=== PATIENT | female | born 1935 | race Caucasian/White ===

== ENCOUNTER 2016-10-04 09:44 | Emergency (ER) | payer MEDICARE, OTHER ==
[2016-10-04 09:45] VITALS: BMI 25.8
--- NOTE | 2016-10-04 11:16 | C.PDOC ---
History Of Present Illness 81 yr old female presents to the ER with complaints of generalized facial pain since last night. Patient states the pain comes and goes, more over upper gums, aching, " feels like my face is swollen". Patient denies recent illness, fever, chills, recent dental work, severe headache, dizziness, vertigo, visual changes , focal deficits, visual changes, drooling, trismus, neck pain, chest pain, SOB , dyspnea, palpitation, abd. pain, back pain. Ambulate to ED for evaluation, not in any apparent distress. Time Seen by Provider: 10/04/16 10:32 Chief Complaint (Nursing): Dental Pain History Per: Patient History/Exam Limitations: no limitations Onset/Duration Of Symptoms: Sudden Onset (Facial tenderness since last night) Current Symptoms Are (Timing): Still Present Quality: Positive for: Aching Past Medical History Reviewed: Historical Data, Nursing Documentation, Vital Signs Vital Signs: Last Vital Signs Temp 97.6 F 10/04/16 09:51 Pulse 64 10/04/16 09:51 Resp 16 10/04/16 09:51 BP 145/77 10/04/16 09:51 Pulse Ox 97 10/04/16 11:17 Family History: States: No Known Family Hx - Social History Hx Alcohol Use: No Hx Substance Use: No Review Of Systems Except As Marked, All Systems Reviewed And Found Negative. Constitutional: Positive for: Other ((+) Facial tenderness). Negative for: Fever, Chills Cardiovascular: Negative for: Chest Pain Respiratory: Negative for: Shortness of Breath Musculoskeletal: Negative for: Neck Pain Neurological: Negative for: Weakness, Numbness Physical Exam - Physical Exam Appears: Well, Non-toxic, No Acute Distress Skin: Normal Color, Warm, Dry, No Rash Head: Atraumatic, Normacephalic Eye(s): bilateral: Normal Inspection, PERRL, EOMI Ear(s): Bilateral: Normal Nose: Normal, No Discharge Oral Mucosa: Moist, No Drooling, No Trismus Teeth: Tender To Palpation (mild to Left upper lateral incisor.), Other (Uper teeth crowns.) Gingiva: Erythema (mild erythema and edema upper frontal.), No Ulceration, No Bleeding, No Abscess Throat: Normal, No Erythema, No Exudate Neck: Normal, Normal ROM, Supple Lymphatic: Adenopathy (mild B/L submandibular) Chest: Symmetrical, No Tenderness Cardiovascular: Rhythm Regular, No Murmur Respiratory: Normal Breath Sounds, No Rales, No Rhonchi, No Stridor, No Wheezing Extremity: Normal ROM, No Swelling Neurological/Psych: Oriented x3, Normal Speech Gait: Steady ED Course And Treatment O2 Sat by Pulse Oximetry: 97 Pulse Ox Interpretation: Normal Progress Note: Pt was evaluated by ED attending and Rx: Amoxicillin and discharge with outpt f/u PMD, Dentist recommend. On re-eavluation, p[t is afebrile, hemodyhamicaly stable. Non-toxic. [place] Po well in ED. Neck: (-) meningeal sign. Neurologicaly intact. Pt advised and ref. to F/U with Dentist and PMD in 2-3 days for re-eavl. return ifa ny new changes. Disposition Counseled Patient/Family Regarding: Diagnosis, Need For Followup, Rx Given - Disposition Referrals: Jessica Alonso MD [Medical Doctor] - Disposition: HOME/ ROUTINE Disposition Time: 11:10 Condition: STABLE Additional Instructions: Take medication as prescribed Warm salty water teeth soaks Follow up with PMD and Dentist in 2-3 days for re-evaluation. Return to ED if any worsening or new changes. Prescriptions: Amoxicillin [Amoxil 500 mg Cap] 500 mg PO BID #14 cap Chlorhexidine Gluconate [Peridex 473 ml] 5 ml PO TID #1 bottle traMADol [Ultram] 50 mg PO BID #7 tab Instructions: Toothache (ED) Print Language: JAPANESE - Clinical Impression Clinical Impression: Gingivitis - PA / RECYCLING OR RUBBISH COLLECTOR / Resident Statement MD/DO has reviewed & agrees with the documentation as recorded. - Scribe Statement The provider has reviewed the documentation as recorded by the Scribe Lucy Mckeon All medical record entries made by the Scribe were at my direction and personally dictated by me. I have reviewed the chart and agree that the record accurately reflects my personal performance of the history, physical exam, medical decision making, and the department course for this patient. I have also personally directed, reviewed, and agree with the discharge instructions and disposition.
[2016-10-04 12:09] VITALS: BP 155/93; PULSE 63; RESP 18; TEMP 98.1; O2SAT 98
== END 2016-10-04 12:10 | disposition home or self-care (01) ==
LOC: C.ER 09:44
DX: K05.10 Chronic gingivitis, plaque induced (principal)

== ENCOUNTER 2016-10-05 09:34 | Emergency (ER) | payer MEDICARE, OTHER ==
[2016-10-05 09:34] VITALS: BMI 25.8
[2016-10-05] MEDS ORDERED: Sodium Chloride 0.9% 1,000 ML IV ONE (11:48)
[2016-10-05 12:00] LABS: BASO % 0.5 % (0.0-2.0); EOS % 0.1 % (0.0-4.0); HEMATOCRIT 36.1 % (34.0-47.0); LYMPH # 1.2 K/uL (1.0-4.3); LYMPH % 12.4 % (20.0-40.0); MEAN CELL VOLUME 84.6 fL (81.0-99.0); MEAN CORPUSCULAR HEMOGLOBIN 27.3 pg (27.0-31.0); MEAN CORPUSCULAR HGB CONC 32.3 g/dL (33.0-37.0); MEAN PLATELET VOLUME 10.1 fL (7.2-11.7); MONO # 0.4 K/uL (0.0-0.8); MONO % 3.7 % (0.0-10.0); RED CELL DISTRIBUTION WIDTH 14.6 % (11.5-14.5); WHITE BLOOD COUNT 9.4 K/uL (4.8-10.8)
[2016-10-05] MEDS ORDERED: Sodium Chloride 0.9% 1,000 ML ONE (12:00)
[2016-10-05 12:25] LABS: CHLORIDE 102 mmol/L (98-107); POTASSIUM 3.7 mmol/L (3.6-5.2); SODIUM 142 mmol/L (132-148)
[2016-10-05 12:26] LABS: RBC URINE 7 /hpf (0-3); URINE BACTERIA FEW (<OCC); URINE BILIRUBIN NEGATIVE (NEGATIVE); URINE BLOOD NEGATIVE (NEGATIVE); URINE COLOR Yellow (YELLOW); URINE GLUCOSE (UA) NORMAL (Normal); URINE KETONE 1+ mg/dL (NEGATIVE); URINE LEUKOCYTE ESTERASE 1+ Leu/uL (Negative); URINE PROTEIN NEGATIVE (NEGATIVE); URINE UROBILINOGEN NORMAL mg/dL (0.2-1.0); WBC URINE 47 /hpf (0-5)
[2016-10-05 12:27] LABS: BILIRUBIN,TOTAL 0.6 mg/dL (0.2-1.3); GFR AFRICAN-AMERICAN > 60
[2016-10-05 12:28] LABS: ALKALINE PHOSPHATASE 72 U/L (38-126); ALT/SGPT 20 U/L (9-52); AST/SGOT 24 U/L (14-36); BLOOD UREA NITROGEN 15 mg/dL (7-17); CARBON DIOXIDE 26 mmol/L (22-30); GLUCOSE,RANDOM 135 mg/dL (65-105); TOTAL PROTEIN 7.3 g/dL (6.3-8.3)
[2016-10-05 12:29] LABS: CALCIUM 8.9 mg/dl (8.6-10.4)
--- NOTE | 2016-10-05 12:33 | CT ---
PROCEDURE: CT HEAD WITHOUT CONTRAST. HISTORY: "dizzness" COMPARISON: 10/07/2015 TECHNIQUE: Axial computed tomography images were obtained through the head/brain without intravenous contrast. Radiation dose: Total exam DLP = 1036.04 mGy-cm. FINDINGS: HEMORRHAGE: No intracranial hemorrhage. BRAIN: No intracranial mass. 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 Small old left basal ganglia lacunar infarct. No evidence of acute infarct. Mild diffuse atrophy consistent with patient age. Mild chronic periventricular white matter ischemic change. VENTRICLES: Unremarkable. No hydrocephalus. CALVARIUM: Unremarkable. PARANASAL SINUSES: Unremarkable as visualized. No significant inflammatory changes. MASTOID AIR CELLS: Unremarkable as visualized. No inflammatory changes. OTHER FINDINGS: None. IMPRESSION: No intracranial mass, hemorrhage or evidence of acute infarct. 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 Involutional changes consistent with age.
--- NOTE | 2016-10-05 12:59 | C.PDOC ---
History Of Present Illness 81 year old female presents to the ED with complaints of waking up with dizziness and having 2 episodes of vomiting this morning. Patient states she was seen in the ED yesterday for dental pain and was started on Amoxicillin and Tramadol. She took the Amoxicillin last night and notes she still feels lightheaded and dizzy. She has not taken anything for the symptoms and denies chest pain, abdominal pain, fever, chills, urinary symptoms, or any other complaints at this time. Time Seen by Provider: 10/05/16 11:36 Chief Complaint (Nursing): GI Problem History Per: Patient History/Exam Limitations: no limitations Onset/Duration Of Symptoms: Hrs Current Symptoms Are (Timing): Still Present Severity: Mild Past Medical History Reviewed: Historical Data, Nursing Documentation, Vital Signs Vital Signs: Last Vital Signs Temp 98 F 10/05/16 16:04 Pulse 77 10/05/16 16:04 Resp 17 10/05/16 16:04 BP 107/52 L 10/05/16 16:04 Pulse Ox 97 10/05/16 16:55 Family History: States: Unknown Family Hx - Social History Hx Alcohol Use: No Hx Substance Use: No Review Of Systems Except As Marked, All Systems Reviewed And Found Negative. Constitutional: Negative for: Fever, Chills Cardiovascular: Positive for: Light Headedness. Negative for: Chest Pain Respiratory: Negative for: Shortness of Breath Gastrointestinal: Positive for: Vomiting. Negative for: Abdominal Pain Genitourinary: Negative for: Dysuria, Frequency Neurological: Positive for: Dizziness. Negative for: Weakness, Numbness Physical Exam - Physical Exam Appears: Non-toxic, No Acute Distress Skin: Normal Color, Warm, Dry Head: Atraumatic, Normacephalic Eye(s): bilateral: Normal Inspection Oral Mucosa: Moist Chest: Symmetrical, No Deformity Cardiovascular: Rhythm Regular, No Murmur Respiratory: Normal Breath Sounds, No Accessory Muscle Use, No Rales, No Rhonchi , No Wheezing Gastrointestinal/Abdominal: Soft, No Tenderness, No Distention, No Guarding, No Rebound Extremity: Normal ROM Neurological/Psych: Oriented x3, Normal Speech, Normal Cognition ED Course And Treatment - Laboratory Results Result Diagrams: 10/05/16 11:55 10/05/16 11:55 ECG: Interpreted By Me, Viewed By Me ECG Rhythm: Sinus Rhythm Rate From EC O2 Sat by Pulse Oximetry: 97 (Room air) Pulse Ox Interpretation: Normal - CT Scan/US CT Head w/o contrast Other Rad Studies (CT/US): Read By Radiologist, Radiology Report Reviewed CT/US Interpretation: IMPRESSION: No intracranial mass, hemorrhage or evidence of acute infarct. 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 Involutional changes consistent with age. Progress Note: CT Head w/o contrast, EKG, Blood work, and Urinalysis ordered and reviewed. Patient treated with Pepcid, Zofran, and IV fluids. Medical Decision Making Medical Decision Making: Pt feeling better post meds Labs and CT unremrkable No indication of central cause Plan dc home pcp follow up 1 -2 days Disposition Counseled Patient/Family Regarding: Diagnosis, Need For Followup - Disposition Referrals: [facility] at [facility] [Outside] Disposition: HOME/ ROUTINE Disposition Time: 16:45 Condition: GOOD Additional Instructions: STOP ANTIBIOTIC YOU GOT LAST NIGHT Start new one tonight Follow up with pmd or our clinic Return to the ED for any new or worsening symptoms Prescriptions: Nitrofurantoin Macrocrystals [Macrobid] 1 cap PO BID #14 cap Ondansetron [Zofran Odt] 1 odt PO BID PRN #6 odt PRN Reason: .nausea vomiting Instructions: Vertigo (ED), Urinary Tract Infection in Women (ED) - Clinical Impression Clinical Impression: UTI (urinary tract infection), Dizziness - Scribe Statement The provider has reviewed the documentation as recorded by the Scribe Fan Macdonald. Provider Attestation: All medical record entries made by the Scribe were at my direction and personally dictated by me. I have reviewed the chart and agree that the record accurately reflects my personal performance of the history, physical exam, medical decision making, and the department course for this patient. I have also personally directed, reviewed, and agree with the discharge instructions and disposition.
[2016-10-05 16:05] VITALS: BP 107/52; PULSE 77; RESP 17; TEMP 98
[2016-10-05 16:46] VITALS: O2SAT 97
--- NOTE | 2016-10-06 10:50 | CARD ---
APPROVED REPORT EKG Measurement Heart [id number] <Conclusion> Normal sinus rhythm Normal ECG
== END 2016-10-05 17:25 | disposition home or self-care (01) ==
LOC: C.ER 09:34
DX: N39.0 Urinary tract infection, site not specified (principal); R42 Dizziness and giddiness
CPT/HCPCS: 70450; 80053; 81001; 85025; 93005; 96361; 96374; 96375; 99285; J2405; J7040

== ENCOUNTER 2017-08-07 10:58 | Emergency (ER) | payer MEDICARE, OTHER ==
[2017-08-07 11:01] VITALS: BMI 26.3
[2017-08-07 11:42] LABS: BASO % 0.2 % (0.0-2.0); EOS % 0.7 % (0.0-4.0); HEMOGLOBIN 12.4 g/dL (11.0-16.0); LYMPH # 2.2 K/uL (1.0-4.3); LYMPH % 29.7 % (20.0-40.0); MEAN CELL VOLUME 84.1 fL (81.0-99.0); MEAN CORPUSCULAR HEMOGLOBIN 27.7 pg (27.0-31.0); MEAN PLATELET VOLUME 9.5 fL (7.2-11.7); MONO # 0.7 K/uL (0.0-0.8); MONO % 8.9 % (0.0-10.0); NEUT # 4.6 K/uL (1.8-7.0); NEUT % 60.5 % (50.0-75.0); NRBC % 0.1 % (0.0-2.0); RBC 4.46 Mil/uL (3.80-5.20); RED CELL DISTRIBUTION WIDTH 15.1 % (11.5-14.5); WHITE BLOOD COUNT 7.5 K/uL (4.8-10.8)
--- NOTE | 2017-08-07 11:54 | C.PDOC ---
History Of Present Illness 82-YEAR-OLD FEMALE, PRESENTS TO THE EMERGENCY DEPARTMENT WITH COMPLAINTS OF VOMITING/DIARRHEA ONGOING FEW DAYS. LAST VOMITING THIS AM. PATIENT NOTES OCC BELLY CRAMPING. NO FEV OR BLOOD. SECONDARY COMPLAINT IS EXACERBATION OF CHRONIC R KNEE PAIN, ONGOING FOR PAST SEVERAL WEEKS. XR NEGATIVE. HAD RELIEF W MOTRIN, BUT IS NO LONGER WORKING NO PAIN MEDS TAKEN DISC RECORDIST EXAM ABD NEG R KNEE MILD EFFUSION. PAIN REPRODUCIBLE W FLEXION Time Seen by Provider: 08/07/17 11:11 Chief Complaint (Nursing): Abdominal Pain History Per: Patient History/Exam Limitations: no limitations Onset/Duration Of Symptoms: Days Current Symptoms Are (Timing): Still Present Severity: Moderate Past Medical History Vital Signs: Last Vital Signs Temp 98.3 F 08/07/17 11:01 Pulse 80 08/07/17 11:01 Resp 18 08/07/17 11:01 BP 148/77 08/07/17 11:01 Pulse Ox 96 08/07/17 12:06 - Medical History PMH: HTN Family History: States: Unknown Family Hx - Social History Hx Alcohol Use: No Hx Substance Use: No - Immunization History Hx Tetanus Toxoid Vaccination: Yes Hx Influenza Vaccination: Yes Hx Pneumococcal Vaccination: Yes Review Of Systems Except As Marked, All Systems Reviewed And Found Negative. Constitutional: Negative for: Fever, Chills Cardiovascular: Negative for: Chest Pain, Palpitations Respiratory: Negative for: Shortness of Breath Gastrointestinal: Positive for: Vomiting, Abdominal Pain, Diarrhea Musculoskeletal: Positive for: Leg Pain (R KNEE PAIN). Negative for: Back Pain Neurological: Negative for: Weakness, Numbness, Headache, Dizziness Physical Exam - Physical Exam Appears: Non-toxic, No Acute Distress Skin: Warm, Dry, No Rash Head: Atraumatic, Normacephalic Eye(s): bilateral: Normal Inspection, PERRL Oral Mucosa: Moist Lips: Normal Appearing Neck: Normal ROM Chest: Symmetrical Cardiovascular: Rhythm Regular, No Murmur Respiratory: Normal Breath Sounds, No Accessory Muscle Use Gastrointestinal/Abdominal: Soft, No Tenderness, No Guarding, No Rebound Extremity: No Deformity, Other (R KNEE MILD EFFUSION. PAIN REPRODUCIBLE W FLEXION ) Pulses: Left Dorsalis Pedis: Normal, Right Dorsalis Pedis: Normal Neurological/Psych: Oriented x3, Normal Speech ED Course And Treatment - Laboratory Results Result Diagrams: 08/07/17 11:37 08/07/17 11:37 O2 Sat by Pulse Oximetry: 96 (RA) Pulse Ox Interpretation: Normal Progress - Data Reviewed Data Reviewed: Lab, Old records Disposition Counseled Patient/Family Regarding: Studies Performed, Diagnosis, Need For Followup, Rx Given - Disposition Referrals: YOUR,PMD [Other] Disposition: HOME/ ROUTINE Disposition Time: 15:32 Condition: IMPROVED Prescriptions: Nitrofurantoin Macrocrystals [Macrobid] 1 cap PO BID #14 cap Ondansetron [Zofran Odt] 4 mg PO TID PRN #9 odt PRN Reason: Nausea/Vomiting Tramadol HCl [Ultram] 50 mg PO QID #20 tab Instructions: Osteoarthritis (ED), Urinary Tract Infection in Women (ED), Gastroenteritis (ED) Forms: [employer] (Nepalese) - Clinical Impression Clinical Impression: Vomiting, Diarrhea, UTI (urinary tract infection), Chronic knee pain - Scribe Statement The provider has reviewed the documentation as recorded by the Scribe (Angeli Ellis) All medical record entries made by the Scribe were at my direction and personally dictated by me. I have reviewed the chart and agree that the record accurately reflects my personal performance of the history, physical exam, medical decision making, and the department course for this patient. I have also personally directed, reviewed, and agree with the discharge instructions and disposition.
[2017-08-07 12:06] LABS: ALB/GLOB RATIO 1.1 (1.0-2.1); ALT/SGPT 16 U/L (9-52); AST/SGOT 26 U/L (14-36); BLOOD UREA NITROGEN 19 mg/dL (7-17); CALCIUM 9.4 mg/dl (8.6-10.4); GFR AFRICAN-AMERICAN > 60; GFR NON-AFRICAN AMERICAN > 60; LIPASE 93 U/L (23-300)
[2017-08-07 14:40] LABS: SQUAMOUS EPITHIAL 2 /hpf (0-5); URINE BACTERIA MANY (<OCC); URINE BILIRUBIN NEGATIVE (NEGATIVE); URINE BLOOD 1+ (NEGATIVE); URINE CLARITY Hazy (Clear); URINE COLOR Yellow (YELLOW); URINE GLUCOSE (UA) NORMAL (Normal); URINE LEUKOCYTE ESTERASE 2+ Leu/uL (Negative); URINE NITRATE POSITIVE (NEGATIVE); URINE PROTEIN NEGATIVE (NEGATIVE); URINE UROBILINOGEN NORMAL mg/dL (0.2-1.0)
[2017-08-07] MEDS ORDERED: cefTRIAXone IV 1 gm in Dextros 50 ML IV STA (15:13)
[2017-08-07 16:05] VITALS: BP 162/77; PULSE 59; RESP 20; TEMP 97.4; O2SAT 98
== END 2017-08-07 16:05 | disposition home or self-care (01) ==
LOC: C.ER 10:58
DX: N39.0 Urinary tract infection, site not specified (principal); R19.7 Diarrhea, unspecified; R11.10 Vomiting, unspecified; G89.29 Other chronic pain; M25.561 Pain in right knee; I10 Essential (primary) hypertension
CPT/HCPCS: 80053; 81001; 83690; 85025; 96365; 96375; 99284; J0696; J1885

== ENCOUNTER 2017-08-21 13:25 | Emergency (ER) | payer MEDICARE, OTHER ==
[2017-08-21 13:25] VITALS: BMI 26.3
[2017-08-21 14:18] VITALS: RESP 20
--- NOTE | 2017-08-21 14:43 | C.PDOC ---
History Of Present Illness 82 year old female presents to the ER complaining she cannot urinate. Patient was seen here on 08/[address] Narvaez for vomiting and weakness, and discharged with diagnosis of UTI and started on Macrobid. Given rx for Tramadol and Zofran as well. Patient reports she took meds as prescribed. Last night she developed profuse night sweats, and this morning has not been able to pass urine. No nausea, vomiting, abdominal pain, back pain, or fever. Time Seen by Provider: 08/21/17 14:24 Chief Complaint (Nursing): Female Genitourinary History Per: Patient History/Exam Limitations: no limitations Onset/Duration Of Symptoms: Hrs Current Symptoms Are (Timing): Still Present Associated Symptoms: Urinary Symptoms Past Medical History Reviewed: Historical Data, Nursing Documentation, Vital Signs Vital Signs: Last Vital Signs Temp 97.3 F L 08/21/17 14:14 Pulse 89 08/21/17 14:14 Resp 20 08/21/17 14:14 BP 148/74 08/21/17 14:14 Pulse Ox 97 08/21/17 14:46 - Medical History PMH: HTN Other Surgeries: Glaucoma surgery Family History: States: Unknown Family Hx - Social History Hx Alcohol Use: No Hx Substance Use: No - Immunization History Hx Tetanus Toxoid Vaccination: No Hx Influenza Vaccination: Yes Hx Pneumococcal Vaccination: No Review Of Systems Constitutional: Negative for: Fever Respiratory: Negative for: Shortness of Breath Gastrointestinal: Negative for: Nausea, Vomiting, Abdominal Pain Genitourinary: Positive for: Other (Unable to pass urine). Negative for: Dysuria, Frequency, Incontinence Musculoskeletal: Negative for: Back Pain Skin: Positive for: Other (Night sweats) Physical Exam - Physical Exam Appears: Non-toxic, No Acute Distress Skin: Normal Color, Warm, Dry Head: Atraumatic, Normacephalic Eye(s): bilateral: Normal Inspection, PERRL, EOMI Nose: Normal Oral Mucosa: Moist Neck: Normal ROM, Supple Chest: Symmetrical Cardiovascular: Rhythm Regular, No Murmur Respiratory: Normal Breath Sounds, No Accessory Muscle Use Gastrointestinal/Abdominal: Bowel Sounds (normal), Soft, No Tenderness, No Distention, Other (bladder not distended) Back: Normal Inspection, No CVA Tenderness Extremity: Bilateral: Atraumatic, Normal Color And Temperature, Normal ROM Neurological/Psych: Oriented x3, Normal Speech ED Course And Treatment - Laboratory Results Result Diagrams: 08/21/17 15:42 08/21/17 15:42 Lab Interpretation: No Acute Changes O2 Sat by Pulse Oximetry: 97 (RA) Pulse Ox Interpretation: Normal Progress Note: Bladder scan showed 280ml urine in her bladder. Patient was able to void without difficulty in ED. she is now asymptomatic. Reevaluation Time: 17:03 Reassessment Condition: Improved Medical Decision Making Medical Decision Making: Time: 14:31 Initial Plan: * CMP * CBC * Urine culture * Urinalysis * Reassessment Disposition Counseled Patient/Family Regarding: Studies Performed, Diagnosis, Need For Followup - Disposition Referrals: [facility] [Outside] Disposition: HOME/ ROUTINE Disposition Time: 17:03 Condition: IMPROVED Additional Instructions: Encourage plenty of fluids to help you to keep your bladder flushed and clear. Forms: [employer] [facility] (Slovak), General Discharge Instructions - Clinical Impression Clinical Impression: Urinary hesitancy - Scribe Statement The provider has reviewed the documentation as recorded by the Dago Munguia Provider Attestation: All medical record entries made by the Fifiibjaydon were at my direction and personally dictated by me. I have reviewed the chart and agree that the record accurately reflects my personal performance of the history, physical exam, medical decision making, and the department course for this patient. I have also personally directed, reviewed, and agree with the discharge instructions and disposition.
[2017-08-21 15:52] LABS: BASO # 0.2 K/uL (0.0-0.2); BASO % 2.9 % (0.0-2.0); EOS # 0.1 K/uL (0.0-0.7); EOS % 1.5 % (0.0-4.0); HEMOGLOBIN 11.9 g/dL (11.0-16.0); LYMPH # 2.3 K/uL (1.0-4.3); LYMPH % 32.8 % (20.0-40.0); MEAN CELL VOLUME 84.3 fL (81.0-99.0); MEAN CORPUSCULAR HEMOGLOBIN 27.2 pg (27.0-31.0); MEAN CORPUSCULAR HGB CONC 32.3 g/dL (33.0-37.0); MEAN PLATELET VOLUME 9.8 fL (7.2-11.7); MONO # 0.6 K/uL (0.0-0.8); MONO % 8.5 % (0.0-10.0); NEUT # 3.8 K/uL (1.8-7.0); NEUT % 54.3 % (50.0-75.0); RBC 4.36 Mil/uL (3.80-5.20); RED CELL DISTRIBUTION WIDTH 14.9 % (11.5-14.5); WHITE BLOOD COUNT 6.9 K/uL (4.8-10.8)
[2017-08-21 16:10] LABS: ALBUMIN 3.6 g/dL (3.5-5.0); ALT/SGPT 20 U/L (9-52); AST/SGOT 31 U/L (14-36); BLOOD UREA NITROGEN 21 mg/dL (7-17); CALCIUM 9.3 mg/dl (8.6-10.4); GFR AFRICAN-AMERICAN > 60; GFR NON-AFRICAN AMERICAN > 60
[2017-08-21 16:24] LABS: URINE BILIRUBIN NEGATIVE (NEGATIVE); URINE BLOOD NEGATIVE (NEGATIVE); URINE CLARITY Clear (Clear); URINE COLOR Yellow (YELLOW); URINE GLUCOSE (UA) NORMAL (Normal); URINE LEUKOCYTE ESTERASE TRACE Leu/uL (Negative); URINE NITRATE NEGATIVE (NEGATIVE); URINE PROTEIN NEGATIVE (NEGATIVE); URINE UROBILINOGEN NORMAL mg/dL (0.2-1.0)
[2017-08-21 17:28] VITALS: BP 144/63; PULSE 55; TEMP 97.5; O2SAT 99
== END 2017-08-21 17:27 | disposition home or self-care (01) ==
LOC: C.ER 13:25
DX: R39.11 Hesitancy of micturition (principal); I10 Essential (primary) hypertension

== ENCOUNTER 2017-12-27 07:18 | Inpatient (IN) | payer OTHER ==
[2017-12-19 10:39] VITALS: BMI 27.4
[2017-12-27] MEDS ORDERED: Propofol 10 mg/ml Inj (20 ML) ONE (09:10)
[2017-12-27] MEDS ORDERED: ceFAZolin IV 1 gm in Dextrose 1 GM/50 ML BAG IVPB ONE (09:32)
[2017-12-27] MEDS ORDERED: Neostigmine Methylsulfate 3mg/3ml Syringe IV ONE (10:50)
[2017-12-27] MEDS ORDERED: HYDROmorphone 0.5 mg/0.5 ml ISec IVP PRN ×2 (10:58)
--- NOTE | 2017-12-27 11:05 | PCM.SURG1 ---
Surgeon's Initial Post Op Note - Surgeon's Notes Surgeon: Dr. Campbell Farm General Manager: Jerrica Campa PGY2 Type of Anesthesia: General Endo Pre-Operative Diagnosis: Breast CA R infiltrating ductal CA Operative Findings: [id number] breast mass R Post-Operative Diagnosis: Same Operation Performed: R mastectomy with Axillary nodes dissection Specimen/Specimens Removed: R breast, LNs Estimated Blood Loss: EBL {In ML}: 100 Blood Products Given: N/A Drains Used: Mehdi Post-Op Condition: Fair Date of Surgery/Procedure: 12/27/17 Time of Surgery/Procedure: 11:05
[2017-12-27] MEDS ORDERED: Lactated Ringer's 1,000 ML IV ONE (12:15)
--- NOTE | 2017-12-27 15:04 | CP.PCM.CON ---
History of Present Illness - History of Present Illness History of Present Illness: 82 year old female with a history of right breast cancer (ER/MS positive, HER2 negative) admitted s/p right mastectomy with axillary LN dissection. The patient tolerated surgery well. She does have mild post op pain. She has been taking anastrozole daily with no issues. She denies fevers and chills. Past medical history: None Past surgical history: None Family history: Sister had breast cancer at age 35. Social history: Denies tobacco, alcohol, and illicit drug use. Allergies: NKA Review of systems: All remaining review of systems including HEENT, cardiovascular, respiratory, gastrointestinal, genitourinary, musculoskeletal, dermatologic, and psychiatric are negative unless mentioned in the HPI. Past Patient History - Infectious Disease Hx of Infectious Diseases: None - Past Medical History & Family History Past Medical History?: Yes - Past Social History Smoking Status: Never Smoked - CARDIAC Hx Cardiac Disorders: No Hx Angina: No Hx Atrial Fibrillation: No Hx Cardia Arrhythmia: No Hx Circulatory Problems: No Hx Congestive Heart Failure: No Hx Heart Attack: No Hx Heart Murmur: No Hx Heart Transplant: No Hx Hypercholesterolemia: No Hx Hypertension: No (Not taking BP med) Hx Hypotension: No Hx Internal Defibrillator: No Hx Mitral Valve Prolapse: No Hx Pacemaker: No Hx Peripheral Edema: No Hx Peripheral Vascular Disease: No - PULMONARY Hx Respiratory Disorders: No Hx Asthma: No Hx Bronchitis: No Hx Chronic Obstructive Pulmonary Disease (COPD): No Hx Emphysema: No Hx Lung Cancer: No Hx Pneumonia: No Hx Pulmonary Edema: No Hx Pulmonary Embolism: No Hx Respiratory Aspiration: No Hx Respiratory Tract Infection: No Hx Sleep Apnea: No Hx Tuberculosis: No - NEUROLOGICAL Hx Neurological Disorder: No Hx Alzheimer's Disease: No HX Cerebrovascular Accident: No Hx Dementia: No Hx Dizziness: No Hx Meningitis: No Hx Migraine: No Hx Multiple Sclerosis: No Hx Paralysis: No Hx Parkinson's Disease: No Hx Seizures: No Hx Syncope: No Hx Transient Ischemic Attacks (TIA): No Hx Vertigo: No - HEENT Hx HEENT Problems: No Hx Blind: No Hx Cataracts: Yes Hx Deafness: No Hx Difficulty Chewing: No Hx Epistaxis: No Hx Glaucoma: Yes (SURGERY) Hx Macular Degeneration: No Hx Sinusitis: No - RENAL Hx Chronic Kidney Disease: No Hx Dialysis: No Hx Kidney Stones: No Hx Neurogenic Bladder: No Hx Pyelonephritis: No Hx Renal (Kidney) Cancer: No Hx Renal Failure: No - ENDOCRINE/METABOLIC Hx Endocrine Disorders: No Hx Adrenal Cancer: No Hx Diabetes Insipidus: No Hx Diabetes Mellitus Type 1: No Hx Diabetes Mellitus Type 2: No Hx Hyperthyroidism: No Hx Hypothyroidism: No Hx Systemic Lupus Erythematosus: No - HEMATOLOGICAL/ONCOLOGICAL Hx Blood Disorders: No Hx AIDS: No Hx Anemia: No Hx Blood Transfusions: No Hx Blood Transfusion Reaction: No Hx Bruising: No Hx Cancer: No Hx Chemotherapy: No Hx Cirrhosis: No Hx Gum Bleeding: No Hx Hemophilia: No Hx Hepatitis A: No Hx Hepatitis B: No Hx Hepatitis C: No Hx Human Immunodeficiency Virus (HIV): No Hx Leukemia: No Hx Metastesis: No Hx Shingles: No Hx Sickle Cell Disease: No Hx Unexplained Bleeding: No Hx von Willebrand's Disease: No - INTEGUMENTARY Hx Dermatological Problems: No Hx Basil Cell: No Hx Silva: No Hx Cellulitis: No Hx Eczema: No Hx Melanoma: No Hx Psoriasis: No Hx Squamous Cell: No - MUSCULOSKELETAL/RHEUMATOLOGICAL Hx Musculoskeletal Disorders: No Hx Arthritis: No Hx Back Pain: No Hx Degenerative Joint Disease: No Hx Falls: No Hx Fractures: No Hx Gout: No Hx Herniated Disk: No Hx Myasthenia Gravis: No Hx Osteoarthritis: No Hx Osteomyelitis: No Hx Osteoporosis: No Hx Rhabdomyolysis: No Hx Rheumatoid Arthritis: No Hx Spinal Stenosis: No Hx Unsteady Gait: No - GASTROINTESTINAL Hx Gastrointestinal Disorders: No Hx Bowel Surgery: No Hx Clostridium Difficile: No Hx Colitis: No Hx Colostomy: No Hx Constipation: No Hx Crohn's Disease: No Hx Diarrhea: No Hx Diverticulitis: No Hx Esophageal Varices: No Hx Fatty Liver Disease: No Hx Gall Bladder Disease: No Hx Gastritis: No Hx Gastroesophageal Reflux: No Hx Hemorrhoids: No Hx Ileostomy: No Hx Irritable Bowel: No Hx Liver Failure: No Hx Nausea: No Hx Pancreatitis: No HX Swallowing Problems: No Hx Ulcer: No Hx Vomiting: No - GENITOURINARY/GYNECOLOGICAL Hx Genitourinary Disorders: No Hx Bladder Cancer: No Hx Bladder Stone: No Hx Cervical Cancer: No Hx Hematuria: No Hx Incontinence: No Hx Ovarian Cancer: No Hx Postmenopausal Bleeding: No Hx Reproductive Disorders: No Hx Sexually Transmitted Disorders: No Hx Uterine Cancer: No Hx Urinary Tract Infection: No Other/Comment: Urinary Incontinence - PSYCHIATRIC Hx Psychophysiologic Disorder: No Hx Anxiety: No Hx Bipolar Disorder: No Hx Depression: No Hx Emotional Abuse: No Hx Hallucinations: No Hx Panic Symptoms: No Hx Paranoia: No Hx Post Traumatic Stress Disorder: No Hx Psychosis: No Hx Physical Abuse: No Hx Schizophrenia: No Hx Sexual Abuse: No Hx Substance Use: No - SURGICAL HISTORY Hx Surgeries: No Hx Abdominal Aortic Aneurysm Repair: No Hx Amputation: No Hx Angiogram: No Hx Angioplasty: No Hx Arteriovenous Shunt: No Hx Arthroscopy: No Hx Bile Duct Stent: No Hx Breast Biopsy: Yes Hx Cataract Extraction: Yes Hx Cardiac Catheterization: No Hx Carotid Endarterectomy: No Hx Section: No Hx Cholecystectomy: No Hx Coronary Artery Bypass Graft: No Hx Coronary Stent: No Hx Eye Surgery: Yes (GLUCOMA) Hx Femoral-Popliteal Bypass Graft: No Hx Gastric Bypass Surgery: No Hx Herniorrhaphy: No Hx Hysterectomy: No Hx Joint Replacement: No Hx Kidney Transplant: No Hx Liver Transplant: No Hx Mastectomy: No Hx Musculoskeletal Surgery: No Hx Open Heart Surgery: No Hx Open Reduction Internal Fixation: No Hx Orthopedic Surgery: No Hx Parathyroidectomy: No Hx Penile Implant: No Hx Pulmonary Surgery: No Hx Splenectomy: No Hx Thyroidectomy: No Hx Tonsillectomy: No Hx Tubal Ligation: No Hx Valve Replacement: No Hx Vascular Surgery: No Hx Vascular Access Device: No - ANESTHESIA Hx Anesthesia: Yes Hx Anesthesia Reactions: No Hx Malignant Hyperthermia: No Has any member of the family had a problem w/ anesthesia?: No Meds Allergies/Adverse Reactions: Allergies Allergy/AdvReac Type Severity Reaction Status Date / Time No Known Allergies Allergy Verified 08/21/17 14:18 - Medications Medications: Current Medications Acetaminophen (Tylenol 325mg Tab) 975 mg PO Q6 PRN PRN Reason: Fever >100.4 F Enoxaparin Sodium (Lovenox) 40 mg SC DAILY [facility] Hydromorphone HCl (Dilaudid) 1 mg IVP Q4H PRN PRN Reason: Pain, severe (8-10) Oxycodone/Acetaminophen (Percocet 5/325 Mg Tab) 2 tab PO Q4H PRN PRN Reason: Pain, moderate (4-7) Stop: 12/30/17 11:00 Pantoprazole Sodium (Protonix Inj) 40 mg IVP DAILY [facility] Physical Exam - Head Exam Head Exam: ATRAUMATIC - Eye Exam Eye Exam: Normal appearance - ENT Exam ENT Exam: Mucous Membranes Dry - Respiratory Exam Respiratory Exam: NORMAL BREATHING PATTERN - Cardiovascular Exam Cardiovascular Exam: +S1, +S2 - GI/Abdominal Exam GI & Abdominal Exam: Normal Bowel Sounds - Extremities Exam Extremities exam: Positive for: pedal edema - Neurological Exam Neurological exam: Oriented x3 - Psychiatric Exam Psychiatric exam: Normal Affect, Normal Mood - Skin Skin Exam: Warm Results - Vital Signs Recent Vital Signs: Last Vital Signs Temp 97.2 F L 12/27/17 14:31 Pulse 60 12/27/17 14:31 Resp 20 12/27/17 14:31 BP 136/70 12/27/17 14:31 Pulse Ox 94 L 12/27/17 14:31 Assessment & Plan (1) Breast cancer Assessment and Plan: ER/MS positive, HER2 negative s/p mastectomy with axillary LN dissection f/u pathology for CT C/A/P and bone scan further treatment recommendations based on pathology and staging Thank you for this interesting consult. Status: Acute
[2017-12-27] MEDS: Oxycodone/Acetaminophen 5/325 mg Tab PO PRN ×2 (16:28→20:16)
[2017-12-28] MEDS: Oxycodone/Acetaminophen 5/325 mg Tab PO PRN ×2 (02:03→18:53)
[2017-12-28 07:38] LABS: BASO % 0.4 % (0.0-2.0); EOS % 0.6 % (0.0-4.0); HEMOGLOBIN 12.1 g/dL (11.0-16.0); LYMPH # 2.6 K/uL (1.0-4.3); LYMPH % 31.6 % (20.0-40.0); MEAN CELL VOLUME 85.2 fL (81.0-99.0); MEAN CORPUSCULAR HEMOGLOBIN 28.9 pg (27.0-31.0); MEAN PLATELET VOLUME 9.7 fL (7.2-11.7); MONO # 0.7 K/uL (0.0-0.8); MONO % 8.4 % (0.0-10.0); NEUT # 4.9 K/uL (1.8-7.0); NRBC % 0.1 % (0.0-2.0); RBC 4.17 Mil/uL (3.80-5.20); RED CELL DISTRIBUTION WIDTH 14.7 % (11.5-14.5); WHITE BLOOD COUNT 8.3 K/uL (4.8-10.8)
[2017-12-28 08:13] LABS: BLOOD UREA NITROGEN 13 mg/dL (7-17); CALCIUM 9.3 mg/dl (8.6-10.4); GFR AFRICAN-AMERICAN > 60; GFR NON-AFRICAN AMERICAN > 60
[2017-12-28] MEDS: Enoxaparin 40 mg Syringe SC SCH (09:42)
[2017-12-28] MEDS ORDERED: Iohexol 240 (50 ml) PO ONE (11:00)
--- NOTE | 2017-12-28 12:56 | CP.PCM.PN ---
Subjective - Date & Time of Evaluation Date of Evaluation: 12/28/17 Time of Evaluation: 12:15 - Subjective Subjective: No complaints, mild post op pain. Objective - Vital Signs/Intake and Output Vital Signs (last 24 hours): Temp Pulse Resp BP Pulse Ox 97.5 F L 73 18 109/66 96 12/28/17 07:05 12/28/17 07:05 12/28/17 07:05 12/28/17 07:05 12/28/17 07:05 Intake and Output: 12/28/17 12/28/17 06:59 18:59 Intake Total 350 Output Total 80 Balance 270 - Medications Medications: Current Medications Acetaminophen (Tylenol 325mg Tab) 975 mg PO Q6 PRN PRN Reason: Fever >100.4 F Enoxaparin Sodium (Lovenox) 40 mg SC DAILY [facility] Last Admin: 12/28/17 09:42 Dose: 40 mg Hydromorphone HCl (Dilaudid) 1 mg IVP Q4H PRN PRN Reason: Pain, severe (8-10) Ondansetron HCl (Zofran Inj) 4 mg IVP Q4 PRN PRN Reason: Nausea/Vomiting Last Admin: 12/28/17 09:42 Dose: 4 mg Oxycodone/Acetaminophen (Percocet 5/325 Mg Tab) 2 tab PO Q4H PRN PRN Reason: Pain, moderate (4-7) Stop: 12/30/17 11:00 Last Admin: 12/28/17 02:03 Dose: 2 tab Pantoprazole Sodium (Protonix Inj) 40 mg IVP DAILY [facility] Last Admin: 12/28/17 09:42 Dose: 40 mg - Labs Labs: 12/28/17 07:23 12/28/17 07:23 - Head Exam Head Exam: ATRAUMATIC - Eye Exam Eye Exam: Normal appearance - ENT Exam ENT Exam: Mucous Membranes Dry - Respiratory Exam Respiratory Exam: NORMAL BREATHING PATTERN - Cardiovascular Exam Cardiovascular Exam: +S1, +S2 - GI/Abdominal Exam GI & Abdominal Exam: Normal Bowel Sounds Assessment and Plan (1) Breast cancer Assessment & Plan: ER/NE positive, HER2 negative s/p mastectomy with axillary LN dissection f/u pathology outpatient treatment Status: Acute
[2017-12-28] MEDS ORDERED: Iodixanol 320 MG/ML 100 ML BOTTLE IV ONE (14:34)
--- NOTE | 2017-12-28 18:13 | CP.PCM.PN ---
Subjective - Date & Time of Evaluation Date of Evaluation: 12/28/17 Time of Evaluation: 06:10 - Subjective Subjective: General Surgery Progress Note for Dr. Campbell This 82F was seen and evaluated this AM at bedside no acute events overnight. Dressing clean dry and intact and jerardo drain with 130cc serosang since the OR. Patient has no new complains at this time. Taken from the bed to her bone scan this AM. Patient is refusing PO contrast agree to IV contrast for C/A/P CT. Objective - Vital Signs/Intake and Output Vital Signs (last 24 hours): Temp Pulse Resp BP Pulse Ox 97.2 F L 68 18 148/74 93 L 12/28/17 15:10 12/28/17 15:10 12/28/17 15:10 12/28/17 15:10 12/28/17 15:10 Intake and Output: 12/28/17 12/28/17 06:59 18:59 Intake Total 350 980 Output Total 80 80 Balance 270 900 - Medications Medications: Current Medications Acetaminophen (Tylenol 325mg Tab) 975 mg PO Q6 PRN PRN Reason: Fever >100.4 F Enoxaparin Sodium (Lovenox) 40 mg SC DAILY [facility] Last Admin: 12/28/17 09:42 Dose: 40 mg Hydromorphone HCl (Dilaudid) 1 mg IVP Q4H PRN PRN Reason: Pain, severe (8-10) Ondansetron HCl (Zofran Inj) 4 mg IVP Q4 PRN PRN Reason: Nausea/Vomiting Last Admin: 12/28/17 13:40 Dose: 4 mg Oxycodone/Acetaminophen (Percocet 5/325 Mg Tab) 2 tab PO Q4H PRN PRN Reason: Pain, moderate (4-7) Stop: 12/30/17 11:00 Last Admin: 12/28/17 02:03 Dose: 2 tab Pantoprazole Sodium (Protonix Inj) 40 mg IVP DAILY [facility] Last Admin: 12/28/17 09:42 Dose: 40 mg - Labs Labs: 12/28/17 07:23 12/28/17 07:23 - Constitutional Appears: Non-toxic, No Acute Distress - Head Exam Head Exam: ATRAUMATIC, NORMOCEPHALIC - Eye Exam Eye Exam: EOMI - ENT Exam ENT Exam: Mucous Membranes Moist - Respiratory Exam Respiratory Exam: NORMAL BREATHING PATTERN - Cardiovascular Exam Cardiovascular Exam: +S1, +S2 - GI/Abdominal Exam GI & Abdominal Exam: Soft. absent: Firm, Guarding, Rigid, Tenderness - Neurological Exam Neurological Exam: Alert, Awake - Psychiatric Exam Psychiatric exam: Normal Affect, Normal Mood - Skin Skin Exam: Dry, Intact - Additional Findings Additional findings: Right brest dressing clean dry and intact, pt examined with nurse Chandni as a chaparone Assessment and Plan - Assessment and Plan (Free Text) Assessment: 82F POD#1 s/p mastectomy and doing well Follow up bone scan Follow up CT Regular diet Pain controle Monitor Drain outputs D/W Dr. Adrian Chaudhry PGY2
[2017-12-29 00:27] VITALS: PULSE 65; RESP 20
--- NOTE | 2017-12-29 06:39 | OP ---
PROCEDURE DATE: 12/27/2017 SURGEON: Neris Campbell MD CONSULTING MARINE ENGINEER: Dr. Campa. ANESTHESIA: General. ANESTHESIOLOGIST: Jes Mcdaniel CRNA PREOPERATIVE DIAGNOSIS: Infiltrating ductal carcinoma of the right breast. POSTOPERATIVE DIAGNOSIS: Infiltrating ductal carcinoma of the right breast. PROCEDURE: Right modified radical mastectomy with axillary lymph node dissection. DESCRIPTION OF OPERATION: With the patient in the supine position under adequate general anesthesia, the right chest and upper arm were prepped and draped in the usual sterile manner. The patient had a palpable mass in the lateral portion of the right breast. An elliptical incision was planned to encompass the tumor. The upper incision was made, and the superior skin flap was raised up to the clavicle. The inferior skin flap was then raised down to the chest wall. The breast was dissected in the lower outer quadrant of the chest wall with the goal of preserving the serratus musculature, and this was carried out until the area of the tumor had been passed. At this point, the remainder of the breast was dissected off the pectoralis fascia using electrocautery. The patient is quite thin and elderly, and a portion of the pectoralis was partially resected as well. The medial origin of the pectoralis was freed from the overlying breast and sutured at the sternal edge using interrupted sutures of 0 Vicryl providing better coverage of the chest wall. At the lower anterior edge of the axilla, there was noted to be a number of what appeared to be 1 cm firm lymph nodes, which were matted and when the remainder of the breast tissue had been removed, these were dissected off the chest wall inferiorly and posteriorly and then dissected upwards towards the remainder of the axilla with hemoclips used to control blood vessels passing into this area. The grossly enlarged lymph nodes were excised, and limited to the lower portion of the axilla did not appear to withstand upward to the area of the axillary vein. Then, these were removed separately as the right axillary content. Both specimens were sent to Pathology. A 19-Danish Mehdi drain was placed beneath the flaps on the chest wall and extending into the axilla and after irrigation with sterile water, the incision was closed with gino. A dry sterile suction dressing was applied. The patient tolerated the procedure well and transferred to the recovery room in stable condition. Estimated blood loss for the procedure was 100 mL. Neris Campbell MD
[2017-12-29 08:49] VITALS: BP 120/64; TEMP 98.2; O2SAT 97
[2017-12-29] MEDS: Enoxaparin 40 mg Syringe SC SCH (10:41)
[2017-12-29] MEDS ORDERED: Iodixanol 320 MG/ML 100 ML BOTTLE IV ONE (10:42)
--- NOTE | 2017-12-29 13:54 | CP.PCM.DIS ---
Provider - Provider Date of Admission: 12/27/17 10:57 Attending physician: Neris Campbell MD Time Spent in preparation of Discharge (in minutes): 30 Hospital Course - Lab Results Lab Results: Most Recent Lab Values WBC 8.3 K/uL (4.8-10.8) 12/28/17 07:23 RBC 4.17 Mil/uL (3.80-5.20) 12/28/17 07:23 Hgb 12.1 g/dL (11.0-16.0) 12/28/17 07:23 Hct 35.5 % (34.0-47.0) 12/28/17 07:23 MCV 85.2 fL (81.0-99.0) 12/28/17 07: MCH 28.9 pg (27.0-31.0) 12/28/17 07: MCHC 34.0 g/dL (33.0-37.0) 12/28/17 07: RDW 14.7 % (11.5-14.5) H 12/28/17 07:23 Plt Count 170 K/uL (130-400) 12/28/17 07:23 MPV 9.7 fL (7.2-11.7) 12/28/17 07:23 Neut % (Auto) 59.0 % (50.0-75.0) 12/28/17 07: Lymph % (Auto) 31.6 % (20.0-40.0) 12/28/17 07:23 [place] % (Auto) 8.4 % (0.0-10.0) 12/28/17 07: Eos % (Auto) 0.6 % (0.0-4.0) 12/28/17 07:23 Baso % (Auto) 0.4 % (0.0-2.0) 12/28/17:23 Neut # (Auto) 4.9 K/uL (1.8-7.0) 12/28/17 07: Lymph # (Auto) 2.6 K/uL (1.0-4.3) 12/28/17 07:23 [place] # (Auto) 0.7 K/uL (0.0-0.8) 12/28/17 07:23 Eos # (Auto) 0.0 K/uL (0.0-0.7) 12/28/17 07:23 Baso # (Auto) 0.0 K/uL (0.0-0.2) 12/28/17 07:23 Sodium 142 mmol/L (132-148) 12/28/17 07:23 Potassium 4.0 mmol/L (3.6-5.2) 12/28/17 07:23 Chloride 104 mmol/L (98-107) 12/28/17 07:23 Carbon Dioxide 30 mmol/L (22-30) 12/28/17 07:23 Anion Gap 12 (10-20) 12/28/17 07:23 BUN 13 mg/dL (7-17) 12/28/17 07:23 Creatinine 0.7 mg/dL (0.7-1.2) 12/28/17 07:23 Est GFR ( Amer) > 60 12/28/17 07:23 Est GFR (Non-Af Amer) > 60 12/28/17 07:23 Random Glucose 106 mg/dL (65-105) H 12/28/17 07:23 Calcium 9.3 mg/dl (8.6-10.4) 12/28/17 07:23 CA 15-3 Antigen 13.9 U/mL (0-35) 12/28/17 07:23 - Hospital Course Hospital Course: 82F underwent right mastectomy 12/27/17. Patient had uncomplicated post op. She is ready to leave, denies any jesus and wants to go home. Discharge Exam - Head Exam Head Exam: ATRAUMATIC, NORMOCEPHALIC - Respiratory Exam Respiratory Exam: NORMAL BREATHING PATTERN, UNREMARKABLE - Cardiovascular Exam Cardiovascular Exam: REGULAR RHYTHM, +S1, +S2 - GI/Abdominal Exam GI & Abdominal Exam: Soft. absent: Distended, Firm, Rebound, Rigid, Tenderness - Neurological Exam Neurological exam: Alert, Oriented x3 - Psychiatric Exam Psychiatric exam: Normal Affect, Normal Mood - Skin Skin Exam: Dry, Intact, Normal Color, Warm - Additional Findings Additional findings: breast drains 40cc total serosang Discharge Plan - Follow Up Plan Condition: GOOD Disposition: HOME/ ROUTINE Additional Instructions: 1) Follow up with Dr. Campbell in 1 week 2) Drain to be remove in office 3) Can shower, but do not bath Referrals: Neris Campbell MD [Staff Provider] -
--- NOTE | 2017-12-29 15:12 | CP.PCM.PN ---
Subjective - Date & Time of Evaluation Date of Evaluation: 12/29/17 Time of Evaluation: 13:15 - Subjective Subjective: No complaints. Objective - Vital Signs/Intake and Output Vital Signs (last 24 hours): Temp Pulse Resp BP Pulse Ox 98.2 F 65 20 120/64 97 12/29/17 08:00 12/29/17 08:00 12/29/17 08:00 12/29/17 08:00 12/29/17 08:00 Intake and Output: 12/29/17 12/29/17 06:59 18:59 Intake Total 300 Output Total 115 40 Balance 185 -40 - Medications Medications: Current Medications Acetaminophen (Tylenol 325mg Tab) 975 mg PO Q6 PRN PRN Reason: Fever >100.4 F Enoxaparin Sodium (Lovenox) 40 mg SC DAILY [facility] Last Admin: 12/29/17 10:41 Dose: 40 mg Hydromorphone HCl (Dilaudid) 1 mg IVP Q4H PRN PRN Reason: Pain, severe (8-10) Ondansetron HCl (Zofran Inj) 4 mg IVP Q4 PRN PRN Reason: Nausea/Vomiting Last Admin: 12/29/17 08:31 Dose: 4 mg Oxycodone/Acetaminophen (Percocet 5/325 Mg Tab) 2 tab PO Q4H PRN PRN Reason: Pain, moderate (4-7) Stop: 12/30/17 11:00 Last Admin: 12/28/17 18:53 Dose: 2 tab Pantoprazole Sodium (Protonix Inj) 40 mg IVP DAILY [facility] Last Admin: 12/29/17 10:41 Dose: 40 mg - Labs Labs: 12/28/17 07:23 12/28/17 07:23 - Head Exam Head Exam: ATRAUMATIC - Eye Exam Eye Exam: Normal appearance - ENT Exam ENT Exam: Mucous Membranes Dry - Respiratory Exam Respiratory Exam: NORMAL BREATHING PATTERN - Cardiovascular Exam Cardiovascular Exam: +S1, +S2 - GI/Abdominal Exam GI & Abdominal Exam: Normal Bowel Sounds Assessment and Plan (1) Breast cancer Assessment & Plan: ER/DC positive, HER2 negative s/p mastectomy with axillary LN dissection outpatient f/u Status: Acute
--- NOTE | 2017-12-29 15:54 | CT ---
PROCEDURE: CT chest and pelvis dated 12/29/2017 HISTORY: Evaluate for metastasis in a patient with a history of right breast carcinoma status post mastectomy. COMPARISON: Prior CT scan chest 11/11/2009 available comparison however that report has been provided. TECHNIQUE: IV dose administered: 100 cc Visipaque 320 contrast material Radiation dose: Total exam DLP = 745.08 mGy-cm. This CT exam was performed using one or more of the following dose reduction techniques: Automated exposure control, adjustment of the mA and/or kV according to patient size, and/or use of iterative reconstruction technique. . FINDINGS: CT CHEST WITH CONTRAST: LUNGS: Mild of passive/ dependent type atelectatic changes both lower lobes with what appears to represent a tiny left-sided effusion with mild atelectasis and trace right-sided effusion and minor atelectasis. Mild biapical pleural thickening Lung grullon are otherwise clear. Small approximately 2.4 mm nodular density left anterior upper lobe near the pleural surface best seen on axial series the 4 image number 61. . There are 2 tiny subpleural nodular densities seen along right lateral upper lobe/lung apex seen on axial image number [id number] which may represent the sequela of the aforementioned apical pleural thickening. Two small similar foci subpleural nodular densities seen in the left lateral upper lung field axial images numbers 26 and 36 that may represent the same. Followup the CT scan in 2-3 months could be performed to assess stability and exclude the possibility of a small metastatic deposit given the patient's history of breast carcinoma. MEDIASTINUM: Unremarkable. Normal caliber aorta and pulmonary arterial trunk. No aortic dissection. Normal size heart. LYMPH NODES: No significant mediastinal or hilar adenopathy. PLEURA: As above. No evidence of pneumothorax BONES: Mild multilevel degenerative spondylosis of the thoracic spine. No acute compression fractures no retropulsed fragments. No obvious suspicious lytic or blastic lesions seen. OTHER FINDINGS: Postoperative changes of right mastectomy with in situ subcutaneous drainage catheter associated with small amount subcutaneous air. Overlying skin closure gino are present. CT ABDOMEN AND PELVIS: LIVER: Liver is mildly enlarged measuring nearly 20 cm in CC dimension. Mild diffuse fatty hepatic infiltration. . There are a few small low-attenuation foci scattered throughout the right and left lobes of the liver, the largest of which is located in the anterior aspect left lobe which measures approximately 5 mm. This focus exhibits Hounsfield units in the low teens and that could represent cyst. The other smaller lesions are too small characterize. Followup the CT scan at interval recommended to assess stability. Portal and splenic veins are opacified. GALLBLADDER AND BILE DUCTS: Gallbladder is physiologically distended. No evidence of intraluminal gallbladder calculi. PANCREAS: The pancreas appears atrophic and fatty replaced. . No obvious pancreatic mass or collection. SPLEEN: Spleen exhibits normal size and attenuation pattern ADRENALS: There is a small of 6.5 mm right adrenal nodule. Recommend the follow-up noncontrast MRI of the adrenal glands. Slightly enlarged left adrenal gland. KIDNEYS AND URETERS: Kidneys demonstrate symmetric nephrograms. No evidence of nephrolithiasis or hydronephrosis. No obvious renal mass or collection. VASCULATURE: Unremarkable. No aortic aneurysm. BOWEL: Evaluation of the bowel is limited due to lack of oral contrast material. Stomach is incompletely distended. Visualized loops of small bowel exhibit normal contour and caliber. No evidence of acute mechanical small bowel obstruction. Moderate amount of stool is seen within the cecum at ascending and transverse colon consistent with mild fecal retention/ constipation. Multiple colonic diverticula are present, the bulk of which arise from the sigmoid and the descending colon APPENDIX: Normal appendix best seen on coronal sequence image number #[id number] PERITONEUM: Unremarkable. No free fluid. No free air. Small bubbles of subcutaneous air seen anteriorly within the right lower abdomen and left pelvis region. LYMPH NODES: No significant lymphadenopathy BLADDER: Small bilateral bladder diverticulum along the posterolateral margins of the urinary bladder. REPRODUCTIVE: In situ pessary. There is a rounded soft tissue density in the left aspect of the pelvis that appears be contiguous with the left lateral margin of the fundus of the uterus that measures approximately 3.4 x 3.3 cm and could represent an serosal surface exophytic fibroid however the possibility of an ovarian mass not excluded. Recommend followup pelvic ultrasound. . BONES: Mild multilevel degenerative spondylosis of the lower lumbar spine. . No obvious suspicious lytic or blastic lesions OTHER FINDINGS: None. IMPRESSION: Status post right breast mastectomy. . Small nodule left upper lobe nonspecific. Recommend follow-up CT scan in 2-3 months given the patient's history of breast carcinoma. Small left and tiny right-sided effusions associated with minor of bibasilar atelectasis. There are a few tiny low attenuation foci scattered throughout the hepatic parenchyma the largest measuring 5 mm which exhibits Hounsfield units in the low teens and could represent small cyst. The other foci too small characterize. Followup the CT scan at interval recommended to assess stability. . Findings consistent with constipation. Rounded soft tissue mass abutting the left margin of the uterine fundus which could represent a serosal surface exophytic fibroid however an ovarian mass not excluded. Pelvic ultrasound followup recommended. Small right adrenal nodule. Follow-up noncontrast MRI of the adrenal glands could be performed. Slightly enlarged left adrenal gland.
--- NOTE | 2017-12-29 17:29 | NM ---
PROCEDURE: Whole Body Bone Scan HISTORY: breast CA COMPARISON: None available. TECHNIQUE: Following administration of 21.6 mCi of Tc MDP multiplanar whole body images were obtained. FINDINGS: Evidence for bony metastatic disease: None. Degenerative uptake: None. Physiologic uptake: Normal physiologic activity in the kidneys. Other findings: Nonspecific uptake is seen in the lateral proximal metaphysis right tibia or in the right fibula head. IMPRESSION: No definitive metastatic pattern throughout the axial and appendicular skeleton, however, nonspecific uptake is seen at the lateral portion of the proximal tab metaphysis right tibia or at the right fibular head. If patient is symptomatic here follow-up radiography is recommended.
== END 2017-12-29 15:30 | disposition home or self-care (01) | DRG 580 ==
LOC: C.SDS 07:18 → EDSTATUS 09:00 → C.9S 10:57 → C.6T 11:29
PROVIDERS: ADMIT Specialist; ATTEND Specialist
PROC: 07B50ZX Excision of Right Axillary Lymphatic, Open Approach, Diagnostic (ICD-10-PCS; 2017-12-27)
PROC: [UNRECOGNIZED PROCEDURE] (2017-12-27)
PROC: 0HBT0ZZ Excision of Right Breast, Open Approach (ICD-10-PCS; principal; 2017-12-27 09:00)
DX: C50.411 Malignant neoplasm of upper-outer quadrant of right female breast (principal); C77.3 Secondary and unspecified malignant neoplasm of axilla and upper limb lymph nodes; C50.511 Malignant neoplasm of lower-outer quadrant of right female breast; Z17.0 Estrogen receptor positive status [ER+]; G89.18 Other acute postprocedural pain

== ENCOUNTER 2017-12-31 00:53 | Emergency (ER) | payer OTHER ==
[2017-12-31 00:53] VITALS: BMI 27.4
[2017-12-31 00:55] VITALS: TEMP 97.9; O2SAT 96
--- NOTE | 2017-12-31 02:12 | C.PDOC ---
History Of Present Illness 82 year old female presets to the ED for evaluation of right sided mastectomy site tenderness. Patient reports she had right sided total mastectomy done last week by Dr. Campbell. Patient states she noticed some swelling to the post operative site and is scared of being alone at home. Patient denies fever, chills, SOB, weakness, numbness. Time Seen by Provider: 12/31/17 01:09 Chief Complaint (Nursing): Upper Extremity Problem/Injury History Per: Patient History/Exam Limitations: no limitations Onset/Duration Of Symptoms: Days Current Symptoms Are (Timing): Still Present Quality: "Pain" Exacerbating Factor(s): Movement Recent travel outside of the [place]: No Additional History Per: Patient Past Medical History Reviewed: Historical Data, Nursing Documentation, Vital Signs Vital Signs: Last Vital Signs Temp 97.9 F 12/31/17 01:03 Pulse 81 12/31/17 01:03 Resp 20 12/31/17 01:03 BP 149/72 12/31/17 01:03 Pulse Ox 96 12/31/17 02:17 - Medical History PMH: Denies: Alzheimer's Disease, Anemia, Anxiety, Arthritis, Asthma, Atrial Fibrillation, Bipolar Disorder, Bronchitis, Cardia Arrhythmia, CHF, COPD, Crohn' s Disease, Dementia, Depression, Diverticulitis, Emphysema, Fractures, Gastritis , Gall Bladder Disease, HIV, HTN (Not taking BP med), Hypercholesterolemia, Hyperthyroidism, Hypothyroidism, Kidney Stones, Migraine, Mitral Valve Prolapse , Multiple Sclerosis, Osteoporosis, Pancreatitis, Paranoia, Parkinson's Disease , Peripheral Edema, Pneumonia, Post Traumatic Stress Disorder, Pulmonary Embolism, Chronic Kidney Disease, Rheumatoid Arthritis, Schizophrenia, Seizures , Sickle Cell Disease, Sexually Transmitted Disease, Sleep Apnea, TIA Other PMH: Breast CA Surgical History: Denies: CABG, Carotid Endarterectomy, Cholecystectomy, Coronary Stent, Pacemaker, Tonsillectomy Other Surgeries: Total mastectomy right side - [facility] Procedures DRAINAGE OF RIGHT BREAST WITH DRAIN DEV, PATTERN CHAIN BUILDER APPROACH (12/27/17) EXCISION OF RIGHT AXILLARY LYMPHATIC, OPEN APPROACH, DIAGN (12/27/17) EXCISION OF RIGHT BREAST, OPEN APPROACH (12/27/17) Family History: States: Unknown Family Hx - Social History Hx Alcohol Use: No Hx Substance Use: No - Immunization History Hx Tetanus Toxoid Vaccination: No Hx Influenza Vaccination: Yes Hx Pneumococcal Vaccination: No Review Of Systems Constitutional: Negative for: Fever Cardiovascular: Positive for: Chest Pain. Negative for: Palpitations Respiratory: Negative for: Shortness of Breath Gastrointestinal: Negative for: Nausea, Vomiting Skin: Positive for: Other (Post op scar) Neurological: Negative for: Weakness, Numbness Physical Exam - Physical Exam Appears: Non-toxic, No Acute Distress Skin: Normal Color, Warm, Dry Head: Atraumatic, Normacephalic Eye(s): bilateral: Normal Inspection Oral Mucosa: Moist Neck: Normal ROM, Supple Chest: Symmetrical, Ecchymosis (right side around operated area), Other (Post OP scar noted with drainage of serous fluid) Cardiovascular: Rhythm Regular Respiratory: Normal Breath Sounds, No Rales, No Rhonchi, No Wheezing Gastrointestinal/Abdominal: Soft, No Tenderness, No Guarding, No Rebound Extremity: Normal ROM, No Tenderness, Capillary Refill (< 2 seconds), No Swelling (right arm) Pulses: Left Radial: Normal, Right Radial: Normal Neurological/Psych: Oriented x3, Normal Speech, Normal Motor, Normal Sensation Gait: Steady ED Course And Treatment O2 Sat by Pulse Oximetry: 96 (On RA) Pulse Ox Interpretation: Normal Progress Note: Spoke with resident programs assistant who came and evaluated the patient at bedside. resident programs assistant states there is nothing to be done with the patient at this time. Patient was reassured and patient asked permission to stay in the ED until the morning because she was afraid to be home alone. Patient will remain in the ED till mornign when she will take a cab home. Disposition - Disposition Referrals: Neris Campbell MD [Staff Provider] - Disposition: HOME/ ROUTINE Disposition Time: 04:11 Condition: STABLE Additional Instructions: Follow up with your PMD and general donation specialist within 1-2 days. Return to Ed if feel worse. Instructions: Mastectomy Forms: [facility] (Yi) - Clinical Impression Clinical Impression: Post-mastectomy pain - PA / TIMBER SIZER / Resident Statement MD/DO has reviewed & agrees with the documentation as recorded. - Scribe Statement The provider has reviewed the documentation as recorded by the Scribe Rosales Eastman All medical record entries made by the Scribe were at my direction and personally dictated by me. I have reviewed the chart and agree that the record accurately reflects my personal performance of the history, physical exam, medical decision making, and the department course for this patient. I have also personally directed, reviewed, and agree with the discharge instructions and disposition.
[2017-12-31 04:14] VITALS: BP 139/74; PULSE 82; RESP 16
== END 2017-12-31 04:14 | disposition home or self-care (01) ==
LOC: C.ER 00:53
DX: G89.18 Other acute postprocedural pain (principal)

== ENCOUNTER 2018-07-31 10:55 | Emergency (ER) | payer MEDICARE, OTHER ==
[2018-07-31 10:55] VITALS: BMI 27.4
[2018-07-31 11:04] VITALS: O2SAT 97
--- NOTE | 2018-07-31 12:16 | RAD ---
HISTORY: cough, congestion COMPARISON: Chest x-ray performed 12/19/17 TECHNIQUE: Chest PA and lateral FINDINGS: LUNGS: Biapical pleural thickening and granulomatous changes. Hyperinflation may be seen in the setting of COPD. Increased lucencies especially within the bilateral upper lung grullon compatible with underlying emphysema. Please note that chest x-ray has limited sensitivity for the detection of pulmonary masses. PLEURA: Trace bilateral effusions. No definite pneumothorax . CARDIOVASCULAR: Cardiomegaly. Ectatic aorta. Atherosclerotic calcifications. OSSEOUS STRUCTURES: Degenerative changes. VISUALIZED UPPER ABDOMEN: Unremarkable. OTHER FINDINGS: Right axillary clips. IMPRESSION: Cardiomegaly. Ectatic aorta. Emphysema/COPD. Trace effusions. Biapical pleural thickening/granulomatous changes.
--- NOTE | 2018-07-31 12:38 | C.PDOC ---
History Of Present Illness 83 year old female presents to the ED for evaluation of cough and congestion which began one week ago. She has taken [id number] medications without relief. Patient reports her symptoms are worsening, which has prompted this visit. Patient is s/p mastectomy and also complains that her scars are itchy. Patient denies fever, chills, vomiting, diarrhea. Time Seen by Provider: 07/31/18 11:21 Chief Complaint (Nursing): Cough, Cold, Congestion History Per: Patient History/Exam Limitations: no limitations Onset/Duration Of Symptoms: Other (one week ) Current Symptoms Are (Timing): Still Present Associated Symptoms: Cough, Nasal Congestion Additional History Per: Patient Past Medical History Reviewed: Historical Data, Nursing Documentation, Vital Signs Vital Signs: Last Vital Signs Temp 98.3 F 07/31/18 11:01 Pulse 85 07/31/18 11:01 Resp 16 07/31/18 11:01 BP 168/92 H 07/31/18 11:01 Pulse Ox 97 07/31/18 11:01 - Medical History PMH: Denies: Alzheimer's Disease, Anemia, Anxiety, Arthritis, Asthma, Atrial Fibrillation, Bipolar Disorder, Bronchitis, Cardia Arrhythmia, CHF, COPD, Crohn's Disease, Dementia, Depression, Diverticulitis, Emphysema, Fractures, Gastritis, Gall Bladder Disease, HIV, HTN (Not taking BP med), Hypercholesterolemia, Hyperthyroidism, Hypothyroidism, Kidney Stones, Migraine, Mitral Valve Prolapse, Multiple Sclerosis, Osteoporosis, Pancreatitis, Paranoia, Parkinson's Disease, Peripheral Edema, Pneumonia, Post Traumatic Stress Disorder, Pulmonary Embolism, Chronic Kidney Disease, Rheumatoid Arthritis, Schizophrenia, Seizures, Sickle Cell Disease, Sexually Transmitted Disease, Sleep Apnea, TIA Surgical History: No Surg Hx Denies: CABG, Carotid Endarterectomy, Cholecystectomy, Coronary Stent, Pacemaker, Tonsillectomy - [facility] Procedures EXCISION OF RIGHT AXILLARY LYMPHATIC, OPEN APPROACH, DIAGN (12/27/17) RESECTION OF RIGHT BREAST, OPEN APPROACH (12/27/17) Family History: States: Unknown Family Hx - Social History Hx Alcohol Use: No Hx Substance Use: No - Immunization History Hx Tetanus Toxoid Vaccination: No Hx Influenza Vaccination: Yes Hx Pneumococcal Vaccination: No Review Of Systems Constitutional: Negative for: Fever, Chills ENT: Positive for: Nose Congestion Respiratory: Positive for: Cough Physical Exam - Physical Exam Appears: Non-toxic, No Acute Distress Skin: Normal Color, Warm, Dry, No Rash Head: Atraumatic, Normacephalic Eye(s): bilateral: Normal Inspection Ear(s): Bilateral: Normal Nose: Normal, No Discharge Oral Mucosa: Moist Throat: Normal, No Erythema, No Exudate Neck: Normal ROM, Supple Chest: Symmetrical, No Deformity, No Tenderness, Other (post-mastectomy scars are well-healed, no rash ) Cardiovascular: Rhythm Regular, No Friction Rub, No Murmur Respiratory: No Rales, Rhonchi (scattered ), No Wheezing Gastrointestinal/Abdominal: Bowel Sounds (active), Soft, No Tenderness Back: Normal Inspection, No CVA Tenderness Extremity: Normal ROM, No Tenderness, Capillary Refill (less than 2 seconds ), No Swelling Neurological/Psych: Oriented x3, Normal Speech, Normal Cognition Gait: Steady ED Course And Treatment O2 Sat by Pulse Oximetry: 97 (on RA ) Pulse Ox Interpretation: Normal - Other Rad CXR X-Ray: Viewed By Me, Read By Radiologist Interpretation: HISTORY: cough, congestion. COMPARISON: Chest x-ray performed 12/19/17. TECHNIQUE: Chest PA and lateral. FINDINGS: LUNGS: Biapical pleural thickening and granulomatous changes. Hyperinflation may be seen in the setting of COPD. Increased lucencies especially within the bilateral upper lung grullon compatible with underlying emphysema. Please note that chest x-ray has limited sensitivity for the detection of pulmonary masses. PLEURA: Trace bilateral effusions. No definite pneumothorax . CARDIOVASCULAR: Cardiomegaly. Ectatic aorta. Atherosclerotic calcifications. OSSEOUS STRUCTURES: Degenerative changes. VISUALIZED UPPER ABDOMEN: Unremarkable. OTHER FINDINGS: Right axillary clips. IMPRESSION: Cardiomegaly. Ectatic aorta. Emphysema/COPD. Trace effusions. Biapical pleural thickening/granulomatous changes. Medical Decision Making Medical Decision Making: Plan: * chest xray * zithromax PO * prednisone PO * reassess and disposition Progress: CXR ordered and reviewed. Zithromax PO and Prednisone PO given. CXR is NAD. On re-exam, the patient reports improvement of symptoms. Vitals are WNLs, Lungs are CTA, heart is RRR, abdomen is soft, non-tender and tolerating PO well. Ambulatory in the ED with steady gait. Disposition - Disposition Referrals: John Caldwell MD [Staff Provider] - Jack Zepeda MD [Staff Provider] - Von Alonso MD [Medical Doctor] - Disposition: HOME/ ROUTINE Disposition Time: 12:40 Condition: STABLE Additional Instructions: Follow up with the medical doctor/clinic within 1-2 days. Return if worsened. Prescriptions: Azithromycin [Zithromax] 250 mg PO DAILY #4 tab Benzonatate 200 mg PO TID PRN #30 capsule PRN Reason: Cough Clotrimazole/Betamethasone [Lotrisone] 15 gm EXT DAILY #1 tube predniSONE [Prednisone] 20 mg PO BID #10 tab Instructions: Acute Bronchitis Forms: [employer] (Hungarian) - Clinical Impression Clinical Impression: Bronchitis - PA / DIAGNOSTIC MEDICAL SONOGRAPHER / Resident Statement MD/DO has reviewed & agrees with the documentation as recorded. - Scribe Statement The provider has reviewed the documentation as recorded by the Scribe (Tammie Zeng) All medical record entries made by the Scribe were at my direction and personally dictated by me. I have reviewed the chart and agree that the record accurately reflects my personal performance of the history, physical exam, medical decision making, and the department course for this patient. I have also personally directed, reviewed, and agree with the discharge instructions and disposition.
[2018-07-31 12:49] VITALS: BP 136/65; PULSE 73; RESP 20; TEMP 98.9
== END 2018-07-31 13:23 | disposition home or self-care (01) ==
LOC: C.ER 10:55
DX: J40 Bronchitis, not specified as acute or chronic (principal)

== ENCOUNTER 2018-08-28 12:11 | Outpatient (CLI) | payer MEDICARE, OTHER | END 2018-08-28 12:12 | disposition home or self-care (01) | LOC: C.MRIC 12:12 ==